=== PATIENT | female | born 1995 | race Caucasian/White ===

== ENCOUNTER 2018-01-05 03:33 | Emergency (ER) | payer OTHER ==
[~2018-01-05] VITALS: Ht 157.5 cm; Wt 95.2 kg
--- OUTSIDE RECORDS SUMMARY | ~2018-01-05 | XMS ---
Demographics + + + | Address | [address] | | | [place] [address] | + + + | Preferred Language | Unknown | + + + | Marital Status | Unknown | + + + | Anabaptism Affiliation | Unknown | + + + | Race | Unknown | + + + | Ethnic Group | Unknown | + + + Author + + + | Author | [facility] | + + + | Organization | [facility] | + + + | Address | [address] | | | [place] [address] | + + + | Phone | [phone] | + + + Care Team Providers + + + + | Care Scoring Machine Operator Name | Role | Phone | + + + + Unavailable | Unavailable | + + + + PROBLEMS Unknown Problems ALLERGIES + + + + +--------+ | Substance | Reaction | Event Type | Date | Status | + + + + +--------+ | Amoxicillin | anaphylaxis | Drug Allergy | Jun, | Active | + + + + +--------+ | Penicillin | anaphylaxis | Drug Allergy | Jun, | Active | + + + + +--------+ SOCIAL HISTORY No smoking Hx information available PLAN OF CARE + +---------+ | Activity | Details | + +---------+ +---+ | | +---+ + + + | Follow Up | prn Reason:null | + + + | Pending Test | Chlamydia/GC, Aptima | + + + | Pending Test | AFFIRM DNA Panel | + + + VITAL SIGNS + + + + | Height | 62 in | 2017-06-23 | + + + + | Weight | 199.0 lbs | 2017-06-23 | + + + + | BMI | 36.39 kg/m2 | 2017-06-23 | + + + + | Heart Rate | 114 /min | 2017-06-23 | + + + + | Blood pressure systolic | 131 mm Hg | 2017-06-23 | + + + + | Blood pressure diastolic | 77 mm Hg | 2017-06-23 | + + + + MEDICATIONS + + + + +--------+ + +--------+ | Medicati | Instruct | Dosage | Frequenc | Start | End Date | Duration | Status | | on | ions | | y | Date | | | | + + + + +--------+ + +--------+ | Metronid | Orally | 1 tablet | 12h | | | 7 days | Active | | azole | Twice a | | | | | | | | 500 MG | day | | | | | | | + + + + +--------+ + +--------+ | Diflucan | Orally | 1 tablet | | | | 2 days | Active | | 150 MG | Once | | | | | | | | | today | | | | | | | | | and | | | | | | | | | again in | | | | | | | | | 5 days | | | | | | | + + + + +--------+ + +--------+ RESULTS No Results PROCEDURES + + + + + | Procedure | Date Ordered | Related Diagnosis | Body Site | + + + + + | Est Level III | Jun 23, 2017 | | | | Intermediate | | | | + + + + + | [facility] MED/CURRENT | Jun 23, 2017 | | | | MED MERGE | | | | + + + + + | DOC MEDS VERIFIED | Jun 23, 2017 | | | | W/PT OR RE | | | | + + + + + IMMUNIZATIONS No Known Immunizations"
--- OUTSIDE RECORDS SUMMARY | ~2018-01-05 | XMS ---
Demographics + + + | Address | [address] | | | [place] [address] | + + + | Preferred Language | Unknown | + + + | Marital Status | Unknown | + + + | Zoroastrianism Affiliation | Unknown | + + + | Race | Unknown | + + + | Ethnic Group | Unknown | + + + Author + + + | Author | [facility] | + + + | Organization | [facility] | + + + | Address | [address] | | | [place] [address] | + + + | Phone | [phone] | + + + Care Team Providers + + + + | Care Cylinder Machine Operator Name | Role | Phone | + + + + Unavailable | Unavailable | + + + + PROBLEMS Unknown Problems ALLERGIES Unknown Allergies SOCIAL HISTORY No smoking Hx information available PLAN OF CARE VITAL SIGNS MEDICATIONS Unknown Medications RESULTS No Results PROCEDURES No Known procedures IMMUNIZATIONS No Known Immunizations"
[2018-01-05] MEDS ORDERED: GUAIFENESIN AC473 ML PO (04:02)
== END 2018-01-05 04:17 | disposition home or self-care (01) ==
LOC: ED 03:33
DX: J98.8 Other specified respiratory disorders (principal); B97.89 Other viral agents as the cause of diseases classified elsewhere; F17.200 Nicotine dependence, unspecified, uncomplicated; Z88.0 Allergy status to penicillin; Z88.8 Allergy status to other drugs, medicaments and biological substances
CPT/HCPCS: 99283

== ENCOUNTER 2019-09-24 19:12 | Emergency (ER) | payer OTHER ==
[~2019-09-24] VITALS: Ht 157.5 cm; Wt 77.1 kg
[~2019-09-24 19:12] MED LIST: ADDERALL 20 MG20 MG PO; AMBIEN10 MG PO; GUAIFENESIN AC473 ML PO
[2019-09-24] MEDS ORDERED: DEPAKOTE250 MG PO (19:26)
[2019-09-24] MEDS ORDERED: DEXTROAMPHETAMI10 M1 PO (19:26)
[2019-09-24] MEDS ORDERED: CLONIDINE HCL0.2 MG PO (19:27)
[2019-09-24] MEDS ORDERED: DOXYCYCLINE HY100 MG PO (20:20)
[2019-09-24] MEDS ORDERED: NORCO 5-325 TA1 EACH PO (20:20)
== END 2019-09-24 20:56 | disposition home or self-care (01) ==
LOC: ED 19:12
DX: S61.452A Open bite of left hand, initial encounter (principal); J45.909 Unspecified asthma, uncomplicated; Z87.891 Personal history of nicotine dependence; Z88.0 Allergy status to penicillin; Z88.1 Allergy status to other antibiotic agents; Z88.8 Allergy status to other drugs, medicaments and biological substances; Z79.899 Other long term (current) drug therapy; W54.0XXA Bitten by dog, initial encounter
CPT/HCPCS: 99283

== ENCOUNTER 2020-06-25 15:49 | Emergency (ER) | payer OTHER ==
[~2020-06-25] VITALS: Ht 157.5 cm; Wt 86.2 kg
[~2020-06-25 15:49] MED LIST changes: +CLONIDINE HCL0.2 MG PO; +DEPAKOTE250 MG PO; +DEXTROAMPHETAMI10 M1 PO; +DOXYCYCLINE HY100 MG PO; +NORCO 5-325 TA1 EACH PO
[2020-06-25] MEDS ORDERED: PRENATA CHEWAB1 EACH PO (16:00)
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
== END 2020-06-25 18:25 | disposition home or self-care (01) ==
LOC: ED 15:49
DX: O99.89 Other specified diseases and conditions complicating pregnancy, childbirth and the puerperium (principal); R10.11 Right upper quadrant pain; J45.909 Unspecified asthma, uncomplicated; Z87.891 Personal history of nicotine dependence; Z88.0 Allergy status to penicillin; Z88.1 Allergy status to other antibiotic agents
CPT/HCPCS: 81001; 84702; 84703; 85025; 99284

== ENCOUNTER 2020-10-08 18:01 | Emergency (ER) | payer OTHER ==
[~2020-10-08] VITALS: Ht 160 cm; Wt 95.3 kg
[~2020-10-08 18:01] MED LIST changes: +PRENATA CHEWAB1 EACH PO
[2020-10-08] MEDS ORDERED: CLINDAMYCIN HC300 MG PO (18:32)
== END 2020-10-08 20:07 | disposition home or self-care (01) ==
LOC: ED 18:01
DX: O99.612 Diseases of the digestive system complicating pregnancy, second trimester (principal); K08.89 Other specified disorders of teeth and supporting structures; O99.512 Diseases of the respiratory system complicating pregnancy, second trimester; J45.909 Unspecified asthma, uncomplicated; Z88.0 Allergy status to penicillin; Z88.8 Allergy status to other drugs, medicaments and biological substances
CPT/HCPCS: 99282

== ENCOUNTER 2021-01-20 21:52 | Inpatient (IN) | payer OTHER ==
[~2021-01-20] VITALS: Ht 160 cm; Wt 106.6 kg
[~2021-01-20 21:52] MED LIST changes: +CLINDAMYCIN HC300 MG PO
--- NOTE | 2021-01-21 03:30 | NUR ---
[facility] RAPID COVID DONE PER DR ORDER. COVID TEST COLLECTED FROM BOTH NARES W/O ISSUE. PT TOLERATED WELL.
--- NOTE | 2021-01-21 05:52 | PR ---
[facility] [address] [facility] [place], [place] [address] Signed Progress Notes IP Datetime Report Generated by CPN: 01/21/2021 05:52 PROGRESS NOTES: [id number] Impression: Normal Progression of Labor Plan: Continue Present Management; Anticipate Vaginal Delivery VITAL SIGNS: [id number] Vital Signs: Reviewed; Within Normal Limits EXAM: [id number] Dilatation: 10.0 Effacement: 100 Station: 1 MEMBRANES: [id number] Membranes Status: Ruptured Amniotic Fluid Color: Clear ROM Note: amnisure collected. Comments: Comfortable with Epidural, will have patient start pushing. FETUS A: [id number] FHR Baseline: 140 Variability: Moderate 6-25bpm Accelerations: 15X15 Presentation: Vertex FETUS B: [id number] Signing Physician: Franklin Gardner MD Copies: ~ *Electronically Signed* 01/21/21 0552 FRANKLIN GARDNER MD PATIENT NAME: EVANGELISTA JARVIS PROGRESS NOTE DATE OF : 89 PHYSICIAN: FRANKLIN GARDNER MD RPT #: [id number] REPORT IS CONFIDENTIAL AND NOT TO BE RELEASED WITHOUT AUTHORIZATION
--- NOTE | 2021-01-21 06:44 | PR ---
[facility] [address] [facility] [place] [address] Signed Progress Notes IP Datetime Report Generated by CPN: 01/21/2021 06:44 PROGRESS NOTES: [id number] Impression: Normal Progression of Labor Plan: Continue Present Management; Anticipate Vaginal Delivery VITAL SIGNS: [id number] Vital Signs: Reviewed; Within Normal Limits EXAM: [id number] Dilatation: 10.0 Effacement: 100 Station: 1 MEMBRANES: [id number] Membranes Status: Ruptured Amniotic Fluid Color: Clear ROM Note: amnisure collected. Comments: Patient having increased anxiety, dry heaving, saying she cannot do this. Encouraged to continuie pushing, Epidural working well. FETUS A: [id number] FHR Baseline: 140 Variability: Moderate 6-25bpm Accelerations: 15X15 Presentation: Vertex FETUS B: [id number] Signing Physician: Franklin Gardner MD Copies: ~ *Electronically Signed* 01/21/21 0644 FRANKLIN GARDNER MD PATIENT NAME: EVANGELISTA JARVIS PROGRESS NOTE DATE OF : [birth year] PHYSICIAN: FRANKLIN GARDNER MD [facility] #: [id number] REPORT IS CONFIDENTIAL AND NOT TO BE RELEASED WITHOUT AUTHORIZATION
--- NOTE | 2021-01-21 07:04 | PR ---
[facility] [address] [facility] [place], [place] [address] Signed Progress Notes IP Datetime Report Generated by CPN: 01/21/2021 07:04 PROGRESS NOTES: [id number] Impression: Normal Progression of Labor Plan: Continue Present Management VITAL SIGNS: [id number] Vital Signs: Reviewed; Within Normal Limits EXAM: [id number] Dilatation: 10.0 Effacement: 100 Station: 1 MEMBRANES: [id number] Membranes Status: Ruptured Amniotic Fluid Color: Clear ROM Note: amnisure collected. Comments: Under better control, pushing better. Still comfortable with Epidural (turned off earlier due to patient having a panic attack about not being able to feel her legs). ENcouraged to continue pushing. FETUS A: [id number] FHR Baseline: 140 Variability: Moderate 6-25bpm Accelerations: 15X15 Presentation: Vertex FETUS B: [id number] Signing Physician: Franklin Gardner MD Copies: ~ *Electronically Signed* 01/21/21 0704 FRANKLIN GARDNER MD PATIENT NAME: EVANGELISTA JARVIS PROGRESS NOTE DATE OF : [birth year] PHYSICIAN: FRANKLIN GARDNER MD RPT #: [id number] REPORT IS CONFIDENTIAL AND NOT TO BE RELEASED WITHOUT AUTHORIZATION
--- NOTE | 2021-01-22 09:44 | PR ---
[facility] [address] [place] [address] Signed PP Progress Notes Datetime Report Generated by CPN: 01/22/2021 09:43 SUBJECTIVE: [id number] Pain: Within Normal Limits Nausea/Vomiting: Denies Vital Signs: [id number] Vital Signs: Reviewed; Within Normal Limits Notable Details: Hgb/HCt = 11.9/35.9 EXAM: Ongoing Abdomen/Uterus: Normal Lochia: Normal Extremities: Normal IMPRESSION/PLAN/PROCEDURES: [id number] Impression: Normal Progression Plan: Discharge Procedures: None Progress Notes: Doing well, without complaint, ready to go home. Signing Physician: Franklin Gardner MD Copies: ~ *Electronically Signed* 01/22/21 0943 FRANKLIN GARDNER MD PATIENT NAME: EVANGELISTA JARVIS PROGRESS NOTE DATE OF : 96 PHYSICIAN: FRANKLIN GARDNER MD RPT #: [id number] REPORT IS CONFIDENTIAL AND NOT TO BE RELEASED WITHOUT AUTHORIZATION
== END 2021-01-22 10:15 | disposition home or self-care (01) | DRG 807 ==
LOC: FBCO 21:52 → FBC 22:33
PROVIDERS: ADMIT General Practice; ATTEND General Practice
PROC: 00HU33Z Insertion of Infusion Device into Spinal Canal, Percutaneous Approach (ICD-10-PCS; principal; 2021-01-21)
PROC: 3E0R3BZ Introduction of Anesthetic Agent into Spinal Canal, Percutaneous Approach (ICD-10-PCS; 2021-01-21)
PROC: 10E0XZZ Delivery of Products of Conception, External Approach (ICD-10-PCS; 2021-01-21)
PROC: 0HQ9XZZ Repair Perineum Skin, External Approach (ICD-10-PCS; 2021-01-21)
PROC: 0UQMXZZ Repair Vulva, External Approach (ICD-10-PCS; 2021-01-21)
DX: O24.420 Gestational diabetes mellitus in childbirth, diet controlled (principal); Z37.0 Single live birth; O99.824 Streptococcus B carrier state complicating childbirth; Z20.822 Contact with and (suspected) exposure to COVID-19; Z3A.39 39 weeks gestation of pregnancy; O70.0 First degree perineal laceration during delivery; O71.82 Other specified trauma to perineum and vulva; O99.344 Other mental disorders complicating childbirth; F41.9 Anxiety disorder, unspecified; F90.9 Attention-deficit hyperactivity disorder, unspecified type; Z87.891 Personal history of nicotine dependence; Z88.8 Allergy status to other drugs, medicaments and biological substances; Z88.0 Allergy status to penicillin
CPT/HCPCS: 85027; A9270; C9803; J2001; J2795; J3490; J7121; U0003

== ENCOUNTER 2023-11-25 18:59 | Emergency (ER) | payer OTHER ==
[~2023-11-25] VITALS: Ht 152.4 cm; Wt 117.2 kg
[2023-11-25] MEDS ORDERED: CYCLOBENZAPRINE10 MG PO (20:43)
[2023-11-25 20:56] VITALS: BP 151/97
== END 2023-11-25 20:57 | disposition home or self-care (01) ==
LOC: ED 18:59
DX: S20.212A Contusion of left front wall of thorax, initial encounter (principal); J02.9 Acute pharyngitis, unspecified; W01.0XXA Fall on same level from slipping, tripping and stumbling without subsequent striking against object, initial encounter; Y92.002 Bathroom of unspecified non-institutional (private) residence as the place of occurrence of the external cause; J45.909 Unspecified asthma, uncomplicated; Z87.891 Personal history of nicotine dependence; Z88.0 Allergy status to penicillin; Z88.8 Allergy status to other drugs, medicaments and biological substances
CPT/HCPCS: 71100; 87651; 99283-25

== ENCOUNTER 2025-06-25 01:35 | Emergency (ER) | payer OTHER ==
[~2025-06-25] VITALS: Ht 157.5 cm; Wt 128.0 kg
[~2025-06-25 01:35] MED LIST changes: +CYCLOBENZAPRINE10 MG PO
[2025-06-25] MEDS ORDERED: METRONIDAZOLE500 MG PO (01:55)
[2025-06-25] MEDS ORDERED: DOXYCYCLINE HYCLATE 100 MG HOME.PACK PO ONE (02:00)
[2025-06-25] MEDS ORDERED: DIPHTH,PERTUSS(ACELL),TET VAC 0.5 ML SYRINGE IM ONE (02:00)
[2025-06-25] MEDS ORDERED: HYDROCODONE BIT/ACETAMINOPHEN 5/325 MG 1 TAB HOME.PACK PO PRN (02:00)
[2025-06-25] MEDS ORDERED: metroNIDAZOLE 250 MG HOME.PACK PO ONE (02:00)
[2025-06-25 02:28] VITALS: BP 122/87
[2025-06-25] MEDS ORDERED: PANTOPRAZOLE SODIUM 40 MG TABEC PO ONE (02:30)
== END 2025-06-25 02:28 | disposition home or self-care (01) ==
LOC: ED 01:35
DX: S61.551A Open bite of right wrist, initial encounter (principal); J45.909 Unspecified asthma, uncomplicated; Z23 Encounter for immunization; Z87.891 Personal history of nicotine dependence; Z88.0 Allergy status to penicillin; Z88.8 Allergy status to other drugs, medicaments and biological substances; W54.0XXA Bitten by dog, initial encounter
CPT/HCPCS: 90471; 90715; 99283-25; A9270